=== PATIENT | female | born 1985 | race Caucasian/White ===

== ENCOUNTER 2023-08-23 22:27 | Emergency (ER) | payer SELFPAY ==
[2023-08-23 22:45] VITALS: BP 132/71; PULSE 62; RESP 18; TEMP 98.4; BMI 27.3
[2023-08-23] MEDS ORDERED: ACETAMINOPHEN 500 MG TABLET (FP) PO ONE (22:46)
[2023-08-23] MEDS ORDERED: ACETAMINOPHEN 500 MG TABLET (FP) ONE (22:57)
[2023-08-23] MEDS ORDERED: IBUPROFEN 600 MG TABLET (FP) PO ONE ×2 (23:50→23:54)
== END 2023-08-24 00:04 | disposition home or self-care (01) ==
LOC: JER 22:27
DX: S93.402A Sprain of unspecified ligament of left ankle, initial encounter (principal); M25.572 Pain in left ankle and joints of left foot; M25.472 Effusion, left ankle; W18.49XA Other slipping, tripping and stumbling without falling, initial encounter; Y93.89 Activity, other specified; Y92.9 Unspecified place or not applicable
CPT/HCPCS: 73610-TC-LT-FY; 73630-TC-LT; 99283-25